=== PATIENT | female | born 1985 | race Two or more races ===

== ENCOUNTER 2020-03-30 04:43 | Emergency (ER) | payer OTHER ==
[~2020-03-30] VITALS: Ht 152.4 cm; Wt 49.0 kg
[~2020-03-30 04:43] MED LIST: HIERRO PO; PRENATAL 19 TA1 EACH PO; VALTREX1000 MG PO
== END 2020-03-30 08:25 ==
LOC: ER 04:43
DX: R04.0 Epistaxis (principal)

== ENCOUNTER 2020-04-17 18:17 | Emergency (ER) | payer OTHER ==
[~2020-04-17] VITALS: Ht 152.4 cm; Wt 49.0 kg
== END 2020-04-17 23:03 | disposition designated cancer center or children's hospital (05) ==
LOC: ER 18:17
DX: O26.892 Other specified pregnancy related conditions, second trimester (principal); R04.0 Epistaxis; J32.8 Other chronic sinusitis; Z34.02 Encounter for supervision of normal first pregnancy, second trimester

== ENCOUNTER 2020-05-03 09:43 | Outpatient (CLI) | payer OTHER | END 2020-05-03 15:01 | disposition home or self-care (01) | LOC: OFIC 805 09:43 | PROVIDERS: ATTEND Otolaryngology | DX: R05 Cough (principal) ==

== ENCOUNTER 2020-06-23 04:24 | Inpatient (IN) | payer OTHER ==
[~2020-06-23] VITALS: Ht 154.9 cm; Wt 55.8 kg
[2020-06-23] MEDS ORDERED: PRENATAL TABLE1 EAC1 PO (05:00)
[2020-06-23] MEDS ORDERED: VALTREX1000 MG PO (05:00)
[2020-06-23] MEDS ORDERED: INTEGRA PLUS C1 EAC1 (11:21)
[2020-06-23] MEDS ORDERED: FERROUS SULFAT325 MG (11:21)
[2020-06-23] MEDS ORDERED: INTEGRA PLUS C1 EACH (11:21)
[2020-06-23] MEDS ORDERED: STOOL SOFTENER240 MG (11:22)
== END 2020-06-25 10:59 | disposition home or self-care (01) | DRG 807 ==
LOC: OB/GYN 04:24 → LDR 04:24 → OB/GYN 12:10
PROVIDERS: ADMIT Obstetrics & Gynecology; ATTEND Obstetrics & Gynecology
PROC: 10E0XZZ Delivery of Products of Conception, External Approach (ICD-10-PCS; principal; 2020-06-23)
PROC: 3E033VJ Introduction of Other Hormone into Peripheral Vein, Percutaneous Approach (ICD-10-PCS; 2020-06-23)
DX: O42.013 Preterm premature rupture of membranes, onset of labor within 24 hours of rupture, third trimester (principal); Z37.0 Single live birth; Z3A.36 36 weeks gestation of pregnancy